=== PATIENT | female | born 2000 | race Caucasian/White ===

== ENCOUNTER 2020-12-10 23:53 | Inpatient (IN) ==
[2020-12-11 00:34] LABS: Basophils # 0.1 K/mcL (0.0-0.2); Basophils % 0.6 %; Eosinophils # 0.1 K/mcL (0.0-0.6); Eosinophils % 1.1 %; Hematocrit 42.9 % (35.3-44.9); Immature Granulocytes % 0.7 % (0-4); Lymphocytes # 3.8 K/mcL (0.6-4.6); Mean Corpuscular HGB Conc 32.6 g/dL (31.6-35.5); Mean Corpuscular Hemoglobin 29.7 pg (28.0-33.3); Mean Corpuscular Volume 90.9 fL (83.0-100.0); Mean Platelet Volume 9.9 fL (9.4-12.4); Monocytes # 1.5 K/mcL (0.0-1.3); Monocytes % 11.4 %; Neutrophils # 7.6 K/mcL (1.6-8.9); Platelet Count 370 K/mcL (140-400); Red Blood Count 4.72 M/mcL (3.82-4.97); Red Cell Distribution Width 12.9 % (11.5-14.5); Segmented Neutrophils % 57.2 %; White Blood Count 13.2 K/mcL (4.3-11.1)
[2020-12-11 00:37] LABS: Bacteria,Urine Few per hpf (None-Few); Bilirubin,Urine Negative (Negative); Blood,Urine Trace (Negative); Calcium Oxalate Crystals,Urine Present per hpf; Clarity,Urine Turbid (Clear); Color,Urine Yellow (Yellow); Glucose,Urine (UA) Normal (Normal); Ketones,Urine Negative (Negative); Leukocyte Esterase,Urine Large (Negative); Mucus,Urine Few per lpf (None-Few); Nitrite,Urine Negative (Negative); PH,Urine 5.5 pH Units (5.0-8.0); Protein,Urine 30 mg/dL (Neg-Trace); Specific Gravity,Urine > 1.030 (1.010-1.025); Squamous Epithelial Cell,Urine Many per hpf (None-Few); Urobilinogen,Urine Normal (Normal); WBC,Urine 30-50 per hpf (0-3)
[2020-12-11 00:39] LABS: Amphetamine Screen,Urine Negative ng/mL (Cutoff=1000); Barbiturate Screen,Urine Negative ng/mL (Cutoff=200); Benzodiazepines Screen,Urine Negative ng/mL (Cutoff=200); Cannabinoid Screen,Urine Negative ng/mL (Cutoff = 50); Cocaine Screen,Urine Negative ng/mL (Cutoff= 300); Opiate Screen,Urine Negative ng/mL (Cutoff=300); Phencyclidine Screen,Urine Negative ng/mL (Cutoff=25)
[2020-12-11 00:49] LABS: Acetaminophen < 10 mcg/mL (10-20); BUN/Creatinine Ratio 15 (6-26); Blood Urea Nitrogen 12 mg/dL (6-20); Calcium 9.4 mg/dL (8.6-10.3); Carbon Dioxide 18 mEq/L (23-29); Chloride 106 mEq/L (98-107); Chol/HDL Ratio 3.2 (0-4.9); Cholesterol 149 mg/dL (< 200); Ethanol < 10 mg/dL (Less than 10); Glucose 105 mg/dL (70-105); HDL Cholesterol 46 mg/dL (40-59); LDL Cholesterol,Calculated 63 mg/dL (< 100); Osmolality,Calculated 284 (280-300); Salicylate < 2.5 mg/dL (15.0-30.0); Sodium 137 mEq/L (136-145); Triglycerides 199 mg/dL (< 150); eGFR For African Americans > 60 (> 60); eGFR For Non-African Americans > 60 (> 60)
[2020-12-11 01:39] LABS: Estimated Average Glucose 111 mg/dl; Hemoglobin A1C 5.5 %
[2020-12-11 03:51] LABS: Thyroid Stimulating Hormone 5.437 mcIU/mL (0.340-5.600)
[2020-12-11] MEDS ORDERED: *HR* LORazepam 2 MG/ML VIAL IM PRN (04:14)
[2020-12-11] MEDS ORDERED: Ibuprofen 400 MG TABLET PO PRN (04:14)
[2020-12-11] MEDS ORDERED: Acetaminophen 325 MG TABLET PO PRN (04:14)
[2020-12-11] MEDS ORDERED: *HR* LORazepam 1 MG TABLET PO PRN (04:14)
[2020-12-11] MEDS ORDERED: QUEtiapine Fumarate 25 MG TABLET PO PRN (04:14)
[2020-12-11] MEDS ORDERED: hydrOXYzine pamoate 25 MG CAPSULE PO PRN (04:14)
[2020-12-11] MEDS ORDERED: Haloperidol Lactate 5 MG/ML VIAL IM PRN (04:14)
[2020-12-11] MEDS ORDERED: haloperidoL 5 MG TABLET PO PRN (04:14)
[2020-12-12] MEDS ORDERED: NORETHINDRONE E ESTRADIOL IRON PO SCH (09:00)
[2020-12-12] MEDS ORDERED: (Cariprazine Hcl [Vraylar] 3 MG Capsule) PO SCH (09:00)
[2020-12-12 09:47] VITALS: BP 107/69
[2020-12-13] MEDS ORDERED: (Dulaglutide [Trulicity] 1.5 MG/0.5 ML Pen.Injctr) SQ SCH (14:32)
== END 2020-12-12 17:05 | disposition home or self-care (01) | DRG 885 ==
LOC: EMEROOARM 23:53 → 1ANU 12-11 04:12
PROVIDERS: ADMIT Psychiatry & Neurology Forensic Psychiatry; ATTEND Psychiatry & Neurology Forensic Psychiatry